=== PATIENT | male | born 1975 | race Two or more races ===

== ENCOUNTER 2021-04-28 23:45 | Emergency (ER) | payer BC ==
--- NOTE | 2021-04-29 00:36 | EDM.PDOC ---
ED HPI GENERAL MEDICAL PROBLEM - General Chief Complaint: Fever Stated Complaint: HEADACHE/FEVER Time Seen by Provider: 04/29/21 00:10 Source of Information: Reports: Patient History Limitations: Reports: No Limitations - History of Present Illness INITIAL COMMENTS - FREE TEXT/NARRATIVE: Mr. Parekh is a very pleasant 45-year-old gentleman who now presents to the ED stating that he has had a subjective fever and watery diarrhea since 04/24/2021. He has been taking acetaminophen and ibuprofen every 4 hours to treat it. He then developed a nonproductive cough and a left christian headache this past 04/26/2021. No recent nausea, vomiting, or constipation. The patient states that his roommate became similarly 2 days ago, 04/27/2021. Here in the ED this morning, the patient is found to be hemodynamically stable, afebrile, saturating 95% on room air. He appears to be somewhat uncomfortable, although in no acute distress. Prior to Thursday, the patient denies having a recent fever, chills, sore throat, ear pain, nasal or sinus congestion, cough, dyspnea, chest pain, palpitations, nausea, vomiting, constipation, diarrhea, abdominal pain, urinary symptoms, recent weight gain or weight loss, recent bloody bowel movements or black bowel movements, recent joint aches, headaches, or rashes. The patient does not have a PCP. He has not received a COVID vaccination, nor an influenza vaccination this season. Right Headache Pain Score (Numeric/FACES): 7 - Related Data Allergies Allergy/AdvReac Type Severity Reaction Status Date / Time No Known Allergies Allergy Verified 04/29/21 00:05 Home Meds: Home Meds . 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 ED EXAM, GENERAL - Physical Exam Exam: See Below Exam Limited By: No Limitations General Appearance: Alert, WD/WN, No Apparent Distress Eye Exam: Bilateral Eye: EOMI, Normal Inspection Ears: Normal External Exam, Hearing Grossly Normal Nose: Normal Inspection Throat/Mouth: Normal Inspection, Normal Lips, Normal Voice, No Airway Compromise Head: Atraumatic, Normocephalic Neck: Normal Inspection, Full Range of Motion Respiratory/Chest: No Respiratory Distress, Lungs Clear, Normal Breath Sounds, No Accessory Muscle Use, Chest Non-Tender. No: Respiratory Distress, Decreased Breath Sounds, Crackles, Rhonchi, Wheezing Cardiovascular: Normal Peripheral Pulses, Regular Rate, Rhythm, No Edema, No Gallop, No JVD, No Murmur, No Rub Peripheral Pulses: 3+: Radial (L), Radial (R) GI/Abdominal: Normal Bowel Sounds, Soft, Non-Tender, No Organomegaly, No Distention, No Abnormal Bruit, No Mass Back Exam: Normal Inspection, Full Range of Motion, NT Extremities: Normal Inspection, Normal Range of Motion, No Pedal Edema, Normal Capillary Refill Neurological: Alert, Oriented, Normal Cognition, No Motor/Sensory Deficits Psychiatric: Normal Affect Skin Exam: Warm, Dry, Intact, Normal Color, No Rash Course - Vital Signs Last Recorded V/S: Last Vital Signs Temp 38.5 C H 04/29/21 02:11 Pulse 88 04/29/21 03:15 Resp 23 H 04/29/21 03:15 BP 106/70 04/29/21 03:15 Pulse Ox 90 L 04/29/21 03:15 - Orders/Labs/Meds Orders: Active Orders 24 hr Category Date Time Status Vital Signs [RC] Q15M Care 04/29/21 01:33 Active Chest 1V Frontal [CR] Stat Exams 04/29/21 00:32 Taken EPINEPHrine [Adrenalin] Med 04/29/21 01:33 Active 0.3 mg IM ASDIRECTED PRN Famotidine [Pepcid] Med 04/29/21 01:33 Active 20 mg IVPUSH ASDIRECTED PRN Sodium Chloride 0.9% [Saline Flush] Med 04/29/21 01:45 Active 30 ml FLUSH ASDIRECTED diphenhydrAMINE [Benadryl] Med 04/29/21 01:33 Active 50 mg IVPUSH ASDIRECTED PRN methylPREDNISolone Sod Succ [Solu-MEDROL] Med 04/29/21 01:33 Active 125 mg IVPUSH ASDIRECTED PRN Medication Orders Diphenhydramine HCl (Diphenhydramine 50 Mg/Ml Sdv) 50 mg IVPUSH ASDIRECTED PRN PRN Reason: hypersensitivity reaction Epinephrine HCl (Epinephrine 1 Mg/Ml Sdv) 0.3 mg IM ASDIRECTED PRN PRN Reason: hypersensitivity reaction Famotidine (Famotidine 20 Mg/2 Ml Sdv) 20 mg IVPUSH ASDIRECTED PRN PRN Reason: hypersensitivity reaction Methylprednisolone Sodium Succinate (Methylprednisolone Sodium Succinate 125 Mg/2 Ml Sdv) 125 mg IVPUSH ASDIRECTED PRN PRN Reason: hypersensitivity reaction Sodium Chloride (Sodium Chloride 0.9% 10 Ml Syringe) 30 ml FLUSH ASDIRECTED KRIS Labs: Laboratory Tests 04/28/21 04/29/21 04/29/21 Range/Units 23:57 00:50 00:50 WBC 4.86 (4.23-9.07) K/mm3 RBC 5.11 (4.63-6.08) M/mm3 Hgb 14.8 (13.7-17.5) gm/dl Hct 43.6 (40.1-51.0) % MCV 85.3 (79.0-92.2) fl MCH 29.0 (25.7-32.2) pg MCHC 33.9 (32.2-35.5) g/dl RDW Std Deviation 41.9 (35.1-43.9) fL Plt Count 149 L (163-337) K/mm3 MPV 10.2 (9.4-12.3) fl Neutrophils % (Manual) 76 H (40-60) % Band Neutrophils % 0 (0-10) % Lymphocytes % (Manual) 17 L (20-40) % Atypical Lymphs % 2 % Monocytes % (Manual) 5 (2-10) % Eosinophils % (Manual) 0 L (0.8-7.0) % Basophils % (Manual) 0 L (0.2-1.2) Platelet Estimate Adequate RBC Morph Comment Normal Sodium 134 L (136-145) mEq/L Potassium 3.7 (3.5-5.1) mEq/L Chloride 101 (98-107) mEq/L Carbon Dioxide 25 (21-32) mEq/L Anion Gap 11.7 (5-15) BUN 17 (7-18) mg/dL Creatinine 1.3 (0.7-1.3) mg/dL Est Cr Clr Drug Dosing 61.76 mL/min Estimated GFR (MDRD) 59 (>60) mL/min BUN/Creatinine Ratio 13.1 L (14-18) Glucose 92 (70-99) mg/dL Calcium 8.2 L (8.5-10.1) mg/dL Total Bilirubin 0.8 (0.2-1.0) mg/dL AST 34 (15-37) U/L ALT 41 (16-63) U/L Alkaline Phosphatase 52 (46-116) U/L C-Reactive Protein 9.8 H* (<1.0) mg/dL Total Protein 7.1 (6.4-8.2) g/dl Albumin 3.4 (3.4-5.0) g/dl Globulin 3.7 gm/dL Albumin/Globulin Ratio 0.9 L (1-2) Influenza Type A RNA Negative (NEGATIVE) Influenza Type B RNA Negative (NEGATIVE) SARS-CoV-2 RNA (ULISES) Positive H (NEGATIVE) Meds: Medications Generic Name Dose Route Start Last Admin Trade Name Freq PRN Reason Stop Dose Admin Diphenhydramine HCl 50 mg 04/29/21 01:33 Diphenhydramine 50 Mg/Ml Sdv IVPUSH ASDIRECTED PRN hypersensitivity reaction Epinephrine HCl 0.3 mg 04/29/21 01:33 Epinephrine 1 Mg/Ml Sdv IM ASDIRECTED PRN hypersensitivity reaction Famotidine 20 mg 04/29/21 01:33 Famotidine 20 Mg/2 Ml Sdv IVPUSH ASDIRECTED PRN hypersensitivity reaction Methylprednisolone Sodium Succinate 125 mg 04/29/21 01:33 Methylprednisolone Sodium Succinate 125 Mg/2 Ml Sdv IVPUSH ASDIRECTED PRN hypersensitivity reaction Sodium Chloride 30 ml 04/29/21 01:45 Sodium Chloride 0.9% 10 Ml Syringe FLUSH ASDIRECTED KRIS Discontinued Medications Generic Name Dose Route Start Last Admin Trade Name Freq PRN Reason Stop Dose Admin CASIRIVIMAB/IMDEVIMAB 10 ml/ 110 mls @ 220 mls/hr 04/29/21 01:33 04/29/21 02:10 Sodium Chloride IV 04/29/21 02:02 220 mls/hr ONETIME ONE Administration - Re-Assessments/Exams Free Text/Narrative Re-Assessment/Exam: 04/29/21 00:33 A swab for the SARS-CoV-2 virus and influenza A + B viruses was obtained at triage. I have ordered some blood tests and a portable chest x-ray. 04/29/21 01:12 Portable chest radiograph reviewed. The cardiac silhouette is within normal limits. No pulmonary vascular congestion. No pleural effusions seen on this AP view. There are bilateral hazy infiltrates, consistent with COVID-19 pneumonia. No pneumothorax. Formal read per the Radiologist pending. The patient's CBC is remarkable for mild thrombocytopenia of 149,000, with the remainder of his CBC being unremarkable. His swab for the SARS-CoV-2 virus is positive. His swab for influenza A + B viruses is negative. Results of his CMP and CRP are still pending. 04/29/21 01:26 The patient's CMP is remarkable for slight hyponatremia of 134, and is otherwise unremarkable. His CRP is significantly elevated at 9.8. 04/29/21 01:33 Test results discussed with the patient. Based on his elevated CRP, I recommended an infusion of the monoclonal antibody Regen-Cov. We discussed that at length, including that it is an emergency use authorization medication intended to decrease the likelihood of patients diagnosed with COVID-19 from developing severe symptoms or , and that it does not treat current symptoms. I explained that Regen-Cov is still under investigation, that it is not fully FDA approved, and that the potential benefits and risks of the medication are not fully known. The patient was notified that if he receives Regen-Cov, that it may decrease his immune response to a COVID vaccination, should he decide to get it after he recovers from his current illness. I explained that there is a possibility that he could have an allergic reaction either during or after the infusion, as well as brief pain, bleeding, bruising of the skin, soreness, swelling, and possible infection at the infusion site. Other side effects could occur. I discussed that there are other potential treatment options that are currently not FDA approved to treat COVID-19. The patient was notified that the infusion takes about half an hour, after which he would be expected to remain in the ED for another hour to observe for possible side effects. He was offered the "Patient and caregiver RONDA Regen-Cov fact sheet" to read and review. All questions were answered. The patient expressed understanding, and would like to proceed with the infusion. 04/29/21 03:58 It has been over an hour since the Regen-Cov finished infusing, and the patient had no adverse reactions. I will discharge him home with recommendation that he stay adequately hydrated and take [id number] ibuprofen as needed for discomfort. I am advising him to not take any other ksfo-gjf-trqexdf cough or cold remedies, as they have been shown to be of no benefit. I would like him to acquire a finger pulse oximeter and check his oxygen saturation several times a day. If his SpO2 drops down to 90%, consistently, he needs to return to the ED for reevaluation. The patient was advised to strictly isolate through , 05/09/2021, at which time he should get retested. Departure - Departure Time of Disposition: 03:59 Disposition: Home, Self-Care 01 Condition: Fair Clinical Impression: COVID-19 - Discharge Information *PRESCRIPTION DRUG MONITORING PROGRAM REVIEWED*: Not Applicable *COPY OF PRESCRIPTION DRUG MONITORING REPORT IN PATIENT JOSE LUIS: Not Applicable Referrals: PCP,None [Primary Care Provider] - Forms: ED Department Discharge Additional Instructions: You were seen in the emergency room after feeling feverish with diarrhea since Thursday, and a dry cough and headache since Thursday. Work-up in the ER included several blood tests, a swab for the SARS-CoV-2 virus and influenza A + B viruses, and a chest x-ray. Your swab for the SARS-CoV-2 virus returned positive, indicating that you have COVID-19. (By extension, your roommate almost certainly has it, as well.) Your chest x-ray showed bilateral infiltrates consistent with COVID pneumonia. Your CRP, a measure of inflammation, returned elevated at 9.8. This indicates an elevated risk for the development of serious consequences from COVID-19. You were treated with an infusion of the monoclonal antibodies Regen-Cov (Regeneron). This will help decrease the likelihood that you will develop serious consequences from COVID-19, and it may decrease the length of time that you suffer from symptoms, although it will not likely diminish your current symptoms. We recommend that you stay adequately hydrated, and take xhmp-ysr-wmgvfrh ibuprofen as needed for discomfort. We recommend that you not take any swut-kmy-tnxahjq cough or cold remedies, as they have been shown to be of no benefit, but do have side effects, such as an upset stomach. We recommend that you purchase a finger pulse oximeter, and check your oxygen saturation several times a day. If your oxygen saturation drops down to 90%, co nsistently, you need to return to the ER for reevaluation. It is imperative that you strictly isolate through , 05/09/2021, at which time you should get retested. On average, it takes people 10 days to clear the virus, but you may not be average. If you are still testing positive, you need to continue to isolate until you tested negative. If any other problems, please do not hesitate to return to the ER. Sepsis Event Note (ED) - Evaluation Sepsis Screening Result: No Definite Risk - Focused Exam Vital Signs: Vital Signs Temp Pulse Resp BP Pulse Ox 04/29/21 03:15 88 23 H 106/70 90 L 04/29/21 03:00 86 23 H 115/73 90 L 04/29/21 02:45 86 22 H 119/78 95 04/29/21 02:30 83 26 H 120/66 93 L 04/29/21 02:15 82 22 H 126/75 94 L 04/29/21 02:11 38.5 C H 87 25 H 124/78 96 04/28/21 23:55 37.7 C 84 17 119/86 95 - My Orders Last 24 Hours: My Active Orders 04/29/21 00:32 Chest 1V Frontal [CR] Stat 04/29/21 01:33 Vital Signs [RC] Q15M EPINEPHrine [Adrenalin] 0.3 mg IM ASDIRECTED PRN Famotidine [Pepcid] 20 mg IVPUSH ASDIRECTED PRN diphenhydrAMINE [Benadryl] 50 mg IVPUSH ASDIRECTED PRN methylPREDNISolone Sod Succ [Solu-MEDROL] 125 mg IVPUSH ASDIRECTED PRN 04/29/21 01:45 Sodium Chloride 0.9% [Saline Flush] 30 ml FLUSH ASDIRECTED - Assessment/Plan Last 24 Hours: My Active Orders 04/29/21 00:32 Chest 1V Frontal [CR] Stat 04/29/21 01:33 Vital Signs [RC] Q15M EPINEPHrine [Adrenalin] 0.3 mg IM ASDIRECTED PRN Famotidine [Pepcid] 20 mg IVPUSH ASDIRECTED PRN diphenhydrAMINE [Benadryl] 50 mg IVPUSH ASDIRECTED PRN methylPREDNISolone Sod Succ [Solu-MEDROL] 125 mg IVPUSH ASDIRECTED PRN 04/29/21 01:45 Sodium Chloride 0.9% [Saline Flush] 30 ml FLUSH ASDIRECTED
[2021-04-29 01:03] LABS: CORONAVIRUS COVID-19 NAA POSITIVE (NEGATIVE)
[2021-04-29] MEDS ORDERED: methylPREDNISolone Sodium Succinate 125 MG/2 ML SDV IVPUSH PRN (01:33)
[2021-04-29] MEDS ORDERED: EPINEPHrine 1 MG/ML SDV IM PRN (01:33)
[2021-04-29] MEDS ORDERED: Famotidine 20 MG/2 ML SDV IVPUSH PRN (01:33)
[2021-04-29] MEDS ORDERED: diphenhydrAMINE 50 MG/ML SDV IVPUSH PRN (01:33)
[2021-04-29] MEDS ORDERED: Sodium Chloride 0.9% 10 ML Syringe FLUSH SCH (01:45)
--- NOTE | 2021-04-29 07:14 | CR ---
Chest: Frontal view of the chest was obtained. Comparison: No prior chest imaging is available. Patchy increased density is seen on both sides of the chest. Heart size is at the upper limits of normal. Upper mediastinum is normal. Bony structures show nothing acute. Impression: 1. Patchy increased density within both sides of the chest suspicious for COVID-19 pneumonia as an etiology. Diagnostic code #3
== END 2021-04-29 04:18 | disposition home or self-care (01) ==
LOC: JD.ED 23:45
DX: U07.1 COVID-19 (principal)
CPT/HCPCS: 0240U; 36415; 71045; 80053; 85007; 85027; 86140; 99284; M0243; Q0243

== ENCOUNTER 2021-05-02 02:56 | Emergency (ER) | payer BC ==
--- NOTE | 2021-05-02 03:20 | EDM.PDOC ---
ED HPI GENERAL MEDICAL PROBLEM - General Chief Complaint: Respiratory Problem Stated Complaint: LOW O2 Time Seen by Provider: 05/02/21 03:18 Source of Information: Reports: Patient, Old Records History Limitations: Reports: No Limitations - History of Present Illness INITIAL COMMENTS - FREE TEXT/NARRATIVE: Patient is a 45-year-old male presented to the emergency room with a chief complaint of low oxygen levels and shortness of breath. Patient was seen in the emergency room several days ago and tested positive for COVID-19. Patient states symptoms have progressively worsened. He denies any associated chest pain, calf pain, lower extremity swelling with this. However, his pulse oximeter at home has been consistently reading in the 80s. Patient did receive the monoclonal antibody infusion while in the emergency room. No other treatments have been performed prior to arrival in the emergency room. He does not have any history of DVT or PE. - Related Data Allergies Allergy/AdvReac Type Severity Reaction Status Date / Time No Known Allergies Allergy Verified 04/29/21 00:05 Home Meds: Home Meds dexAMETHasone [Dexamethasone Intensol] 6 mg PO DAILY #30 ml 05/02/21 [Rx] Past Medical History - Past Health History Medical/Surgical History: Denies Medical/Surgical History HEENT History: Reports: Impaired Vision Other HEENT History: Wears glasses - Infectious Disease History Infectious Disease History: Reports: Chicken Pox, Novel Coronavirus Social & Family History - Tobacco Use Tobacco Use Status *Q: Never Tobacco User - Caffeine Use Caffeine Use: Reports: None - Alcohol Use Days Per Week of Alcohol Use: 1 Number of Drinks Per Day: 1 Total Drinks Per Week: 1 - Recreational Drug Use Recreational Drug Use: No - Living Situation & Occupation Living situation: 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) ED ROS GENERAL - Review of Systems Review Of Systems: See Below Free Text/Narrative/Comment: In addition to that documented in the HPI above, the additional ROS was obtained: Constitutional: Denies fevers or chills Eyes: Denies vision changes ENMT: Denies sore throat CV: Denies chest pain Resp: Per HPI GI: Daily diarrhea without vomiting : Denies painful urination MSK: Denies recent trauma Skin: Denies new rashes Neuro: Denies new numbness or tingling or weakness Endocrine: Denies unexpected weight loss Heme: Denies bleeding disorders ED EXAM, GENERAL - Physical Exam Exam: See Below Free Text/Narrative:: I have reviewed the triage vital signs Const: Well nourished, well developed, appears stated age Eyes: Pupils Equal and reactive to light bilaterally, no conjunctival injection HENT: No signs of trauma or swelling, Neck supple without meningismus CV: Regular Rate Rhythm, Warm, well-perfused extremities RESP: Unlabored respiratory effort MSK: No gross deformities appreciated Skin: Warm, dry. No rashes Neuro: Alert, appliance mechanic II-XII grossly intact. Sensation and motor function of extremities grossly intact. Psych: Appropriate mood and affect. Course - Vital Signs Last Recorded V/S: Last Vital Signs Temp 36.9 C 05/02/21 03:01 Pulse 76 05/02/21 03:01 Resp 22 H 05/02/21 03:01 BP 120/79 05/02/21 03:01 Pulse Ox 87 L 05/02/21 03:01 - Orders/Labs/Meds Labs: Laboratory Tests 05/02/21 05/02/21 05/02/21 Range/Units 03:25 03:25 03:25 WBC 5.98 (4.23-9.07) K/mm3 RBC 5.06 (4.63-6.08) M/mm3 Hgb 14.7 (13.7-17.5) gm/dl Hct 41.7 (40.1-51.0) % MCV 82.4 (79.0-92.2) fl MCH 29.1 (25.7-32.2) pg MCHC 35.3 (32.2-35.5) g/dl RDW Std Deviation 39.8 (35.1-43.9) fL Plt Count 231 D (163-337) K/mm3 MPV 9.7 (9.4-12.3) fl Neut % (Auto) 73.1 H (34.0-67.9) % Lymph % (Auto) 18.4 L (21.8-53.1) % [place] % (Auto) 7.7 (5.3-12.2) % Eos % (Auto) 0.3 L (0.8-7.0) Baso % (Auto) 0.3 (0.1-1.2) % Neut # (Auto) 4.37 (1.78-5.38) K/mm3 Lymph # (Auto) 1.10 L (1.32-3.57) K/mm3 [place] # (Auto) 0.46 (0.30-0.82) K/mm3 Eos # (Auto) 0.02 L (0.04-0.54) K/mm3 Baso # (Auto) 0.02 (0.01-0.08) K/mm3 Manual Slide Review Normal smear PT 10.3 (9.7-12.0) SECONDS INR 0.93 D-Dimer, Quantitative 0.96 H (0.19-0.50) mg/L Sodium 138 (136-145) mEq/L Potassium 3.5 (3.5-5.1) mEq/L Chloride 103 (98-107) mEq/L Carbon Dioxide 22 (21-32) mEq/L Anion Gap 16.5 H (5-15) BUN 17 (7-18) mg/dL Creatinine 1.0 (0.7-1.3) mg/dL Est Cr Clr Drug Dosing 80.29 mL/min Estimated GFR (MDRD) > 60 (>60) mL/min BUN/Creatinine Ratio 17.0 (14-18) Glucose 109 H (70-99) mg/dL Calcium 8.6 (8.5-10.1) mg/dL Total Bilirubin 0.9 (0.2-1.0) mg/dL AST 58 H (15-37) U/L ALT 42 (16-63) U/L Alkaline Phosphatase 56 (46-116) U/L C-Reactive Protein 10.3 H* (<1.0) mg/dL Total Protein 7.5 (6.4-8.2) g/dl Albumin 3.1 L (3.4-5.0) g/dl Globulin 4.4 gm/dL Albumin/Globulin Ratio 0.7 L (1-2) Meds: Medications Discontinued Medications Generic Name Dose Route Start Last Admin Trade Name Freq PRN Reason Stop Dose Admin Dexamethasone 6 mg 05/02/21 04:08 Dexamethasone 6 Mg Tablet PO 05/02/21 04:09 ONETIME ONE Departure - Departure Time of Disposition: 04:15 Disposition: Home, Self-Care 01 Clinical Impression: Pneumonia due to COVID-19 virus - Discharge Information Prescriptions: dexAMETHasone [Dexamethasone Intensol] 6 mg PO DAILY #30 ml Referrals: PCP,None [Primary Care Provider] - Forms: ED Department Discharge Additional Instructions: Please take dexamethasone every day for the next 5 days. He is on oxygen at home but continue to monitor oxygen levels. He should return to the emergency room if despite oxygen therapy, you still drop your oxygen levels below 90%. Sepsis Event Note (ED) - Evaluation Sepsis Screening Result: No Definite Risk - Focused Exam Vital Signs: Vital Signs Temp Pulse Resp BP Pulse Ox 05/02/21 03:01 36.9 C 76 22 H 120/79 87 L - Assessment/Plan Assessment:: Patient is a 45-year-old male presenting to the emergency room with shortness of breath and hypoxia. Patient requiring minimal oxygen support via nasal cannula. He otherwise is not in respiratory distress. Alternative diagnoses considered include pulmonary embolism and bacterial pneumonia. However, his work-up here in the emergency room demonstrates a mildly elevated D-dimer with elevated CRP. No indication for emergent CT angiogram at this time. Patient will be initiated on oral dexamethasone. Given hospital bed shortage and patient's lack of respiratory distress we will be able to discharge patient home with home oxygen. Return precautions will be discussed. Patient agrees with this plan.
[2021-05-02] MEDS ORDERED: Dexamethasone 6 MG TABLET PO ONE (04:08)
== END 2021-05-02 05:50 | disposition home or self-care (01) ==
LOC: JD.ED 02:56
DX: U07.1 COVID-19 (principal); J12.82 Pneumonia due to coronavirus disease 2019
CPT/HCPCS: 36415; 80053; 85025; 85379; 85610; 86140; 99284